=== PATIENT | male | born 1940 | race Caucasian/White ===

== ENCOUNTER 2019-10-04 14:05 | Outpatient (CLI) | payer MEDICARE, OTHER ==
[~2019-10-04 14:05] MED LIST: ASPI81TA45 PO; ATEN25TA PO; ATOR10TA9 PO; CLON0.1T22 PO; HYDR2TAB29 PO; IBUP-1221 PO; METH500T5 PO; MOME17SP NS; MULT-204 PO; OMEP40CA42 PO; POTA10TA11 PO; PREG75CA PO; RIVA15TA PO; VIT1TABL62 PO
== END 2019-10-04 23:59 | disposition home or self-care (01) ==
LOC: STAR 14:05
PROVIDERS: ATTEND Internal Medicine Cardiovascular Disease
DX: Z02.9 Encounter for administrative examinations, unspecified (principal)

== ENCOUNTER 2019-10-06 09:53 | Day surgery (SDC) | payer MEDICARE, OTHER ==
[~2019-10-06] VITALS: Ht 182.9 cm; Wt 86.4 kg
[2019-10-06] MEDS ORDERED: OMEP40CA42 PO (10:21)
[2019-10-06] MEDS ORDERED: MELA5CAP PO (10:21)
[2019-10-06] MEDS ORDERED: OXYB5TAB10 PO (10:21)
[2019-10-06] MEDS ORDERED: FLUC150T2 PO (10:21)
[2019-10-06] MEDS ORDERED: SODI1PAC12 INH (10:21)
[2019-10-06] MEDS ORDERED: FURO40TA6 PO (10:21)
[2019-10-06] MEDS ORDERED: TRAM50TA2 PO (10:21)
[2019-10-06] MEDS ORDERED: MONT10TA6 PO (10:21)
[2019-10-06] MEDS ORDERED: PRED5TAB PO (10:21)
[2019-10-06] MEDS ORDERED: CHOL10003 PO (10:21)
[2019-10-06] MEDS ORDERED: B CO1TAB14 PO (10:21)
[2019-10-06 10:28] VITALS: BP 145/100
[2019-10-06] MEDS ORDERED: ALKALOL INH (10:44)
[2019-10-06] MEDS ORDERED: Budesonide INH (10:44)
[2019-10-06] MEDS ORDERED: [UNRECOGNIZED DRUG - REMARK] PO (10:44)
[2019-10-06] MEDS ORDERED: TRIAMCINOLONE TP (10:47)
[2019-10-06] MEDS ORDERED: ALBU8.5H8 INH (10:47)
[2019-10-06 10:48] LABS: BASOPHILS # (AUTO) 0.02 x10^3/uL (0-0.1); BASOPHILS % (AUTO) 0 % (0-1); EOSINOPHILS % (AUTO) 0 % (1-7); LYMPHOCYTES # (AUTO) 1.03 x10^3/uL (1-3.4); LYMPHOCYTES % (AUTO) 8 % (22-44); MD NO; MEAN CORPUSCULAR HEMOGLOBIN 30.8 pg (27.5-34.5); MEAN CORPUSCULAR HGB CONC 33.1 g/dL (33.2-36.2); MEAN CORPUSCULAR VOLUME 93.2 fL (81-97); MEAN PLATELET VOLUME 7.8 fL (7.4-10.4); MONOCYTES # (AUTO) 0.25 x10^3/uL (0.2-0.8); MONOCYTES % (AUTO) 2 % (2-9); NEUTROPHILS # (AUTO) 11.14 x10^3/uL (1.8-6.8); NEUTROPHILS % (AUTO) 90 % (42-75); PLATELET COUNT 239 x10^3/uL (130-400); RED BLOOD COUNT 4.88 x10^6/uL (4.38-5.82); RED CELL DISTRIBUTION WIDTH 12.7 % (9.4-14.8)
[2019-10-06 10:57] LABS: ANION GAP 8 mmol/L (5-15); CALCIUM 8.7 mg/dL (8.5-10.1); CHLORIDE 110 mmol/L (98-107); CREATININE 1.16 mg/dL (0.7-1.3)
[2019-10-06] MEDS ORDERED: LIDOCAINE-MPF 1%, 5ML ONE (11:47)
[2019-10-06] MEDS ORDERED: FENTANYL PF 100 MCG/2ML ONE (11:47)
[2019-10-06] MEDS ORDERED: HEPARIN 1,000 UNITS/ML, 10ML ONE (11:47)
[2019-10-06] MEDS ORDERED: BIVALIRUDIN 250 MG ONE (11:47)
[2019-10-06] MEDS ORDERED: MIDAZOLAM 1 MG/ML, 2ML ONE (11:47)
[2019-10-06] MEDS ORDERED: VERAPAMIL 2.5 MG/ML, 2ML ONE (11:48)
== END 2019-10-06 16:11 | disposition home or self-care (01) ==
LOC: CACL 09:53
PROVIDERS: ATTEND Internal Medicine Cardiovascular Disease
DX: R06.09 Other forms of dyspnea (principal); I25.10 Atherosclerotic heart disease of native coronary artery without angina pectoris; I10 Essential (primary) hypertension; E78.00 Pure hypercholesterolemia, unspecified; Z88.1 Allergy status to other antibiotic agents; Z88.8 Allergy status to other drugs, medicaments and biological substances; Z87.891 Personal history of nicotine dependence; Z79.899 Other long term (current) drug therapy; Z79.01 Long term (current) use of anticoagulants; Z79.84 Long term (current) use of oral hypoglycemic drugs; Z72.89 Other problems related to lifestyle; Z85.46 Personal history of malignant neoplasm of prostate; Z82.49 Family history of ischemic heart disease and other diseases of the circulatory system
CPT/HCPCS: 36415; 80048; 85025; 93460; 99156; 99157; C1769; C1894; J1644; J2250; J3010; Q9967; J0583